=== PATIENT | male | born 1995 | race Asian ===

== ENCOUNTER 2025-03-14 09:33 | Outpatient (AMB) | payer OTHER, SELFPAY ==
--- NOTE | 2025-03-14 09:46 | A.OFFPC_ITS ---
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 He needs a refill of this medication Patient has been burping excessively over the past few months. Intermittent h eartburn. Some constipation, takes fiber. Hemorrhoids for years, sometimes brbpr. History of anemia. Tdap 08/2021 ROS see HPI PHYSICAL EXAM: GENERAL: Alert and oriented x 3. NAD EYES: EOMI. Anicteric. HENT: Moist mucous membranes. No scleral icterus. No cervical lymphadenopathy. LUNGS: Clear to auscultation bilaterally. CARDIOVASCULAR: Regular rate and rhythm. No murmur. No JVD. ABDOMEN: Soft, non-tender +bs EXTREMITIES: No edema. Non-tender. SKIN: No rashes or lesions. Warm. NEUROLOGIC: No focal neurological deficits. CN II-XII grossly intact PSYCHIATRIC: Cooperative. 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 1. Little interest or pleasure in doing things: not at all 2. Feeling down, depressed, or hopeless: several days 3. Trouble falling or staying asleep, or sleeping too much: several days 4. Feeling tired or having little energy: not at all 5. Poor appetite or overeating: not at all 6. Feeling bad about yourself - or that you are a failure or have let yourself or your family down: not at all 7. Trouble concentrating on things, such as reading the newspaper or watching television: several days 8. Moving or speaking so slowly that other people could have noticed. Or the opposite - being so fidgety or restless that you have been moving around a lot more than usual: not at all 9. Thoughts that you would be better off or of hurting yourself in some way: not at all Total score: 3 Depression Screening Interpretation: Negative Depression Screening Done: Yes 44231 - PHQ-9 Billing: Yes Source: Developed by Drs. Lefty Fernández, Juliet Andre, Panfilo Greer and colleagues, with an educational charlette from [employer]. Thrive Questionnaire Date Thrive assessed: 03/08/25 I am a: Patient What is your living situation today?: I have a steady place to live Within the past 12 months, did the food you bought not last and you didn't have the money to get more?: Never true Within the past 12 months, did you worry whether your food would run out before you got money to buy more?: Never true Do you have trouble paying for medicines?: No Do you have trouble getting transportation to medical appointments?: No Do you have trouble paying your heating and electricity bill?: No Do you have trouble taking care of your child, family member or friend?: No Do you have trouble with day-to-day activities such as bathing, preparing meals, shopping, managing finances, etc.?: No Are you currently unemployed and looking for a job?: No Are you interested in more education?: No Please select the resources that you would like help with: None Currently or been in a relationship where the following occur: No concerns reported THRIVE Score: 0 AUDIT C Alcohol Use Questionnaire (AUDIT-C) 1. How often do you have a drink containing alcohol?: Monthly or less 2. How many drinks containing alcohol do you have on a typical day when you are drinking?: 1 or 2 3. How often do you have six or more drinks on one occasion?: Never Total Score: 1 JILLIAN-7 AMB Questionnaire JILLIAN-7 Date JILLIAN - 7 assessed: 03/14/25 Feeling nervous, anxious, or on edge: 1 = Several days Not being able to stop or control worryin = Several days Worrying too much about different things: 1 = Several days Trouble relaxin = Several days Being so restless that it is hard to sit still: 0 = Not at all Becoming easily annoyed or irritable: 2 = More than half the days Feeling afraid as if something awful might happen: 1 = Several days Total JILLIAN-7 score (0-4 normal; 5-9 mild; 10-14 moderate; 15-21 severe): 7 Source: Developed by Drs. Lefty Fernández, Juliet Andre, Panfilo Greer and colleagues, with an educational charlette from [employer]. JILLIAN-7 Assessment Billing JILLIAN-7 Assessment Tool: JILLIAN-7 Assessment 81698 Physical exam (Primary Care) Vital Signs: Last Vital Signs Temp 98.4 F 03/14/25 09:51 Pulse 73 03/14/25 09:51 Resp 12 03/14/25 09:51 BP 112/82 03/14/25 09:51 BMI result Body Mass Index 21.6 Depression Screening Interpretation: Negative Thrive Assessment: Date of Thrive Assessment Date Thrive assessed 03/08/25 03/08/25 13:05 Currently or been in a relationship where the following occur: No concerns reported Coding Level of Care Code New Pt Level 4 (82643) Complex EM visit Add On G2211 Diagnoses Dyspepsia R10.13 History of Helicobacter pylori infection Z86.19 History of anemia Z86.2 Social anxiety disorder F40.10 Additional Codes JILLIAN-7 Assessment Billing - JILLIAN-7 Assessment Tool: JILLIAN-7 Assessment 96428 ([id number]) PHQ-9 - 29391 - PHQ-9 Billing: Yes ([id number]) Assessment & Plan Assessment & Plan (1) Dyspepsia: Code(s): R10.13 - Epigastric pain Category: Medical (2) History of Helicobacter pylori infection: Code(s): Z86.19 - Personal history of other infectious and parasitic diseases Category: Medical (3) History of anemia: Code(s): Z86.2 - Personal history of diseases of the blood and blood-forming organs and certain disorders involving the immune mechanism Category: Medical (4) Social anxiety disorder: Code(s): F40.10 - Social phobia, unspecified Category: Medical Plan 29 year old male presenting to [facility] Past medical, surgical, social reviewed Dyspepsia burping-check h pylori Hemorrhoids-add stool softenor. Declines referral at present Orders: Orders Comprehensive Met. Panel Today Z13.0 - Encounter for screening for diseases of the blood and blood-forming organs and certain disorders involving the immune mechanism, Z13.220 - Encounter for screening for lipoid disorders, Z13.228 - Encounter for screening for other metabolic disorders IRON PROFILE Today R10.13 - Epigastric pain, R35.89 - Other polyuria, R53.83 - Other fatigue, Z86.19 - Personal history of other infectious and parasitic diseases TSH reflex Free T4 Today R10.13 - Epigastric pain, R35.89 - Other polyuria, R53.83 - Other fatigue, Z86.19 - Personal history of other infectious and parasitic diseases Hemoglobin A1c Today R10.13 - Epigastric pain, R35.89 - Other polyuria, R53.83 - Other fatigue, Z86.19 - Personal history of other infectious and parasitic diseases Pathologist Review - CBC Today Z86.2 - Personal history of diseases of the blood and blood-forming organs and certain disorders involving the immune mechanism Complete Blood Count Auto Diff Today Z13.0 - Encounter for screening for diseases of the blood and blood-forming organs and certain disorders involving the immune mechanism, Z13.220 - Encounter for screening for lipoid disorders, Z13.228 - Encounter for screening for other metabolic disorders Lipid Panel Today Z13.0 - Encounter for screening for diseases of the blood and blood-forming organs and certain disorders involving the immune mechanism, Z13.220 - Encounter for screening for lipoid disorders, Z13.228 - Encounter for screening for other metabolic disorders H pylori Ag Stool Today R10.13 - Epigastric pain, R35.89 - Other polyuria, R53.83 - Other fatigue, Z86.19 - Personal history of other infectious and parasitic diseases Medications: New omeprazole 40 mg PO DAILY 30 caps 0RF propranolol 10 mg PO DAILY PRN 30 tabs 0RF public speaking propranolol 10 mg PO DAILY PRN 30 tabs 3RF public speaking
[2025-03-14 09:51] VITALS: BP 112/82; PULSE 73; RESP 12; TEMP 36.9; BMI 21.6
--- OUTSIDE RECORDS SUMMARY | 2025-03-14 10:47 | XMS_ITS | Clinical Summary ---
Author Organization [address] [facility] Address [address] [place] [address] Phone Care Team Providers Care Hitch Technician Name Role Phone Unavailable Primary Care Provider Unavailabl e Social History Tobacco Use Types Packs/Day Years Used Date Smoking Tobacco: Never Assessed Sex and Gender Information Value Date Recorded Sex Assigned at Not on file Legal Sex Male 8:40 AM EST Gender Identity Not on file Sexual Orientation Not on file Plan of Treatment Health Maintenance Due Date Last Done Comments DTaP,Tdap,and Td Vaccines (1 - Tdap) 09/24/2015 Hepatitis B Vaccines (1 of 3 - 19+ 3-dose series) 09/24/2015 HIV Screening 04/07/2022 Hepatitis C Screening 04/07/2022 Social Influencers of Health Screening 04/07/2022 HPV Vaccines (1 - 3-dose SCD M series) 09/24/2023 Depression Screening 05/05/2024 COVID-19 Vaccine (1 - 2023-2 5 season) 2025 Influenza Vaccine (#1) 2025 Cholesterol Screening (Lipid Panel) 09/09/2029 09/09/2024 RSV Immunization Adult Patie nts (1 - 1-dose 75+ series) 09/24/2071 HIB Vaccines Aged Out No longer eligi ble based on patient's age to complete this topic Hepatitis A Vaccines Aged Out No long er eligible based on patient's age to complete this topic IPV Vaccines Aged Out No longer eligi ble based on patient's age to complete this topic MMR Vaccines Aged Out No longer eligi ble based on patient's age to complete this topic Meningococcal ACWY Vaccine Aged Out N o longer eligible based on patient's age to complete this topic Meningococcal B Vaccine Aged Out No l onger eligible based on patient's age to complete this topic Pneumococcal Vaccine: Pediat rics (0 to 5 Years) and At-Risk Patients (6 to 49 Years) Aged Out No longer eligi ble based on patient's age to complete this topic RSV Immunization Patients Un suzy 20 months Aged Out No longer eligible b ased on patient's age to complete this topic Varicella Vaccines Aged Out No longer eligible based on patient's age to complete this topic Procedures Procedure Name Priority Date/Time Associated Diagnosis Comments LIPID PANEL WITH REFLEX TO DIRECT LDL Routine 09/09/2024 12:00 AM EDT Generalized anxiety disorder Chronic fatigue, unspecified from Last 3 Months or Most Recently Relevant to Health Maintenance Results * (ABNORMAL) Lipid panel with reflex to direct LDL (09/09/2024 12:00 AM EDT) Cholesterol 177 0 - 200 mg/dL LAB CHEMISTRY METHOD 09/09/2024 8:01 PM EDT [facility] Triglycerides 173(H) 0 - 150 mg/dL LAB CHEMISTRY METHOD 09/09/2024 8:01 PM EDT [facility] HDL 61 >=40 mg/dL LAB CHEMISTRY METHOD 09/09/2024 8:01 PM EDT [facility] LDL Calculated 81 0 - 100 mg/dL LAB CHEMISTRY METHOD 09/09/2024 8:01 PM EDT [facility] VLDL Cholesterol Samuel 34.6 mg/dL LAB CHEMISTRY METHOD 09/09/2024 8:01 PM [facility] Non HDL Chol. (LDL+VLDL) 116 <145 mg/dL [facility] Chol/HDL Ratio 2.9 0.0 - 4.4 LAB CHEMISTRY METHOD 09/09/2024 8:01 PM [facility] Blood Venous blood specimen / Unknown 09/09/2024 09/09/2024 7:06 PM EDT us [facility] LAB BLOOD ORDERABLES Final Res ult [facility] [address] [place] [address], [place] [phone] from Last 3 Months or Most Recently Relevant to Health Maintenance Insurance [employer]
--- OUTSIDE RECORDS SUMMARY | 2025-03-14 10:47 | XMS_ITS | Encounter Summary ---
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 - Main Lab [address] [facility] [place] [id number] Jcarlos Reich PA [address] [facility] [address] [place], [place] [id number] Generalized anxiety disorder; Chronic fatigue, unspecified Social History Tobacco Use Types Packs/Day Years Used Date Smoking Tobacco: Never Assessed Sex and Gender Information Value Date Recorded Sex Assigned at Not on file Legal Sex Male 8:40 AM EST Gender Identity Not on file Sexual Orientation Not on file documented as of this encounter Plan of Treatment Not on file documented as of this encounter Procedures Procedure Name Priority Date/Time Associated Diagnosis Comments PROSTATE SPECIFIC ANTIGEN SCREEN Routine 09/09/2024 12:00 AM EDT Generalized anxiety disorder Chronic fatigue, unspecified URINALYSIS WITH REFLEX MICROSCOPIC AND CULTURE Routine 09/09/2024 12:00 AM EDT Generalized anxiety disorder Chronic fatigue, unspecified ALEXANDER URINE CULTURE TUBE Routine 09/09/2024 12:00 AM EDT Generalized anxiety disorder Chronic fatigue, unspecified SST - GOLD Routine 09/09/2024 12:00 AM EDT Generalized anxiety disorder Chronic fatigue, unspecified LIPID PANEL WITH REFLEX TO DIRECT LDL Routine 09/09/2024 12:00 AM EDT Generalized anxiety disorder Chronic fatigue, unspecified CBC WITH AUTO DIFFERENTIAL Routine 09/09/2024 12:00 AM EDT Generalized anxiety disorder Chronic fatigue, unspecified VITAMIN D 25 HYDROXY Routine 09/09/2024 12:00 AM EDT Generalized anxiety disorder Chronic fatigue, unspecified URINALYSIS WITH REFLEX MICROSCOPIC AND CULTURE Routine 09/09/2024 12:00 AM EDT Generalized anxiety disorder Chronic fatigue, unspecified CBC AND DIFFERENTIAL Routine 09/09/2024 12:00 AM EDT Generalized anxiety disorder Chronic fatigue, unspecified THYROID STIMULATING HORMONE Routine 09/09/2024 12:00 AM EDT Generalized anxiety disorder Chronic fatigue, unspecified THYROXINE FREE Routine 09/09/2024 12:00 AM EDT Generalized anxiety disorder Chronic fatigue, unspecified MAGNESIUM Routine 09/09/2024 12:00 AM EDT Generalized anxiety disorder Chronic fatigue, unspecified HEMOGLOBIN A1C Routine 09/09/2024 12:00 AM EDT Generalized anxiety disorder Chronic fatigue, unspecified VITAMIN B12 Routine 09/09/2024 12:00 AM EDT Generalized anxiety disorder Chronic fatigue, unspecified COMPREHENSIVE METABOLIC PANEL Routine 09/09/2024 12:00 AM EDT Generalized anxiety disorder Chronic fatigue, unspecified documented in this encounter Results * SST tube (09/09/2024 12:00 AM EDT) Extra Tube Hold for add-ons. 09/09/2024 9:01 PM EDT [facility] Comment:Auto resulted. Blood Venous blood specimen / Unknown 09/09/2024 09/09/2024 7:06 PM EDT us Jcarlos CAR LAB BLOOD ORDERABLES Final Res ult [facility] [address] [place] [address], [place] [phone] * Alexander urine culture tube (09/09/2024 12:00 AM EDT) [facility] Extra Tube Hold for add-ons. 09/09/2024 9:01 PM EDT [facility] Comment:Auto resulted. Urine Urine specimen obtained by clean catch procedure / Unknown 09/09/2024 09/09/2024 7:06 PM EDT Jcarlos CAR LAB URINE ORDERABLES Final Res ult [facility] [address] [place] [address], [place] [phone] * Urinalysis with reflex microscopic and culture (09/09/2024 12:00 AM EDT) [facility] Specific [place] Urine 1.014 1.003 - 1.030 LAB URINALYSIS - AUTOMATED METHOD 09/09/2024 8:37 PM [facility] pH, Urine 7.0 5.0 - 8.0 pH LAB URINALYSIS - AUTOMATED METHOD 09/09/2024 8:37 PM [facility] Leukocytes, Urine Negative Negative LAB URINALYSIS - AUTOMATED METHOD 09/09/2024 8:37 PM [facility] Nitrite, Urine Negative Negative LAB URINALYSIS - AUTOMATED METHOD 09/09/2024 8:37 PM [facility] Protein, Urine Negative <=Trace mg/dL LAB URINALYSIS - AUTOMATED METHOD 09/09/2024 8:37 PM [facility] Glucose, Urine Negative Negative mg/dL LAB URINALYSIS - AUTOMATED METHOD 09/09/2024 8:37 PM [facility] Ketones, Urine Negative Negative mg/dL LAB URINALYSIS - AUTOMATED METHOD 09/09/2024 8:37 PM [facility] Urobilinogen, Urine 0.2 0.2 - 1.0 mg/dL LAB URINALYSIS - AUTOMATED METHOD 09/09/2024 8:37 PM EDT [facility] Bilirubin, Urine Negative Negative LAB URINALYSIS - AUTOMATED METHOD 09/09/2024 8:37 PM EDT [facility] Blood, Urine Negative Negative LAB URINALYSIS - AUTOMATED METHOD 09/09/2024 8:37 PM EDT [facility] Urine Urine specimen obtained by clean catch procedure / Unknown 09/09/2024 09/09/2024 7:06 PM EDT us Jcarlos CAR LAB URINE ORDERABLES Final Res ult [facility] [address] [place] [address], * (ABNORMAL) CBC auto differential (09/09/2024 12:00 AM EDT) WBC 6.7 4.8 - 10.8 K/mcL LAB HEMETOLOGY METHOD 09/09/2024 8:08 PM [facility] RBC 6.50(H) 4.50 - 5.50 M/mcL LAB HEMETOLOGY METHOD 09/09/2024 8:08 PM [facility] Hemoglobin 13.4(L) 13.5 - 17.5 g/dL LAB HEMETOLOGY METHOD [facility] Hematocrit 42.8 42.0 - 54.0 % LAB HEMETOLOGY METHOD 09/09/2024 8:08 PM [facility] MCV 65.6(L) 79.0 - 98.0 FL LAB HEMETOLOGY METHOD 09/09/2024 8:08 PM [facility] MCH 20.6(L) 27.0 - 32.0 pcg LAB HEMETOLOGY METHOD 09/09/2024 8[facility] MCHC 31.3(L) 32.0 - 37.0 g/dL LAB HEMETOLOGY METHOD 09/09/2024 8:08 PM [facility] RDW 17.0(H) 11.0 - 15.0 % LAB HEMETOLOGY METHOD 09/09/2024 8:[facility] Platelets 230 130 - 400 K/mcL LAB HEMETOLOGY METHOD 09/09/2024 8:08 PM [facility] MPV 11.2(H) 7.0 - 11.0 FL LAB HEMETOLOGY METHOD 09/09/2024 8:08 PM [facility] NRBC 0.0 <1.0 % LAB HEMETOLOGY METHOD 09/09/2024 8:08 PM [facility] NRBC Absolute 0.00 <0.10 K/mcL LAB HEMETOLOGY METHOD 09/09/2024 8:08 PM [facility] Neutrophils Relative 56.2 % LAB HEMETOLOGY METHOD 09/09/2024 8:08 PM [facility] Lymphocytes Relative 32.5 % LAB HEMETOLOGY METHOD 09/09/2024 8:08 PM [facility] Monocytes Relative 5.1 % LAB HEMETOLOGY METHOD 09/09/2024 8:08 PM [facility] Eosinophils Relative 4.9 % LAB HEMETOLOGY METHOD 09/09/2024 8:08 PM [facility] Basophils Relative 1.2 % LAB HEMETOLOGY METHOD 09/09/2024 8:08 PM [facility] Immature Granulocytes Relative 0.1 % LAB HEMETOLOGY METHOD 09/09/2024 8:08 PM [facility] Neutrophils Absolute 3.75 1.50 - 7.00 K/mcL LAB HEMETOLOGY METHOD 09/09/2024 8:08 PM EDT [facility] Lymphocytes Absolute 2.17 1.00 - 5.00 K/mcL LAB HEMETOLOGY METHOD 09/09/2024 8:08 PM EDT [facility] Monocytes Absolute 0.34 0.20 - 1.00 K/mcL LAB HEMETOLOGY METHOD 09/09/2024 8:08 PM EDT [facility] Eosinophils Absolute 0.33 0.00 - 0.50 [facility] LAB HEMETOLOGY METHOD 09/09/2024 8:08 PM EDT [facility] Basophils Absolute 0.08 0.00 - 0.20 [facility] LAB HEMETOLOGY METHOD 09/09/2024 8:08 PM EDT [facility] Immature Granulocytes Absolute 0.01 0.00 - 0.03 [facility] LAB HEMETOLOGY METHOD 09/09/2024 8:08 PM EDT [facility] Blood Venous blood specimen / Unknown 09/09/2024 09/09/2024 7:06 PM EDT Jcarlos CAR LAB BLOOD ORDERABLES Final Res ult [facility] [address] [place] [address], * (ABNORMAL) Vitamin D 25 hydroxy (09/09/2024 12:00 AM EDT) Vit D, 25-Hydroxy 26.9(L) 30.0 - 80.0 ng/mL LAB CHEMISTRY METHOD 09/09/2024 8:23 PM EDT [facility] Blood Venous blood specimen / Unknown 09/09/2024 09/09/2024 7:06 PM EDT Jcarlos CAR LAB BLOOD ORDERABLES Final Res ult Performing Organization Address [facility]/ZIP Co de Phone Number [facility] [address] [place] [address], [place] [phone] * Thyroid stimulating hormone (09/09/2024 12:00 AM EDT) TSH 0.79 0.40 - 4.00 mcIU/mL LAB CHEMISTRY METHOD 09/09/2024 9:03 PM EDT [facility] Blood Venous blood specimen / Unknown 09/09/2024 09/09/2024 7:06 PM EDT Jcarlos CAR LAB BLOOD ORDERABLES Final Res ult Performing Organization Address [facility] de Phone Number [facility] [address] [place] [address], [place] [phone] * Prostate specific antigen screen (09/09/2024 12:00 AM EDT) [facility] PSA 0.90 0.00 - 4.00 ng/mL LAB CHEMISTRY METHOD 09/09/2024 8:23 PM EDT [facility] Blood Venous blood specimen / Unknown 09/09/2024 09/09/2024 7:06 PM EDT Narrative [facility] - 09/09/2024 8:23 PM EDT The Siemens Advia Centaur Chemiluminescent Immunoassay is used. Results obtained with different assay methods or kits cannot be used interchangeably. Results cannot be interpreted as absolute evidence of the presence or absence of malignant disease. Jcarlos CAR LAB BLOOD ORDERABLES Final Res ult Performing Organization Address [facility]/ZIP Co de Phone Number [facility] [address] [place] [address], [place] [phone] * Magnesium (09/09/2024 12:00 AM EDT) Magnesium 2.1 1.9 - 2.6 mg/dL LAB CHEMISTRY METHOD 09/09/2024 7:41 PM EDT [facility] Blood Venous blood specimen / Unknown 09/09/2024 09/09/2024 7:06 PM EDT us Jcarlos CAR LAB BLOOD ORDERABLES Final Res ult Performing Organization Address City/[facility]/ZIP Co de Phone Number [facility] [address] [place] [address], [place] [phone] * Hemoglobin A1c (09/09/2024 12:00 AM EDT) [facility] Hemoglobin A1C 5.5 <6.5 % LAB CHEMISTRY METHOD 09/09/2024 10:18 PM EDT [facility] Mean Bld Glu Estim. 111 mg/dL LAB CHEMISTRY METHOD 09/09/2024 10:18 PM EDT [facility] Blood Venous blood specimen / Unknown 09/09/2024 09/09/2024 7:06 PM EDT us Jcarlos CAR LAB BLOOD ORDERABLES Final Res ult Performing Organization Address [facility] de Phone Number [facility] [address] [place] [address], [place] [phone] * Thyroxine free (09/09/2024 12:00 AM EDT) [facility] Free T4 1.43 0.70 - 1.80 ng/dL LAB CHEMISTRY METHOD 09/09/2024 8:23 PM EDT [facility] Blood Venous blood specimen / Unknown 09/09/2024 09/09/2024 7:06 PM EDT us Jcarlos CAR LAB BLOOD ORDERABLES Final Res ult [facility] [address] [place] [address], [place] [phone] * (ABNORMAL) Vitamin B12 (09/09/2024 12:00 AM EDT) [facility] Vitamin B-12 941(H) 250 - 900 pcg/mL LAB CHEMISTRY METHOD 09/09/2024 8:01 PM EDT [facility] Blood Venous blood specimen / Unknown 09/09/2024 09/09/2024 7:06 PM EDT Jcarlos CAR LAB BLOOD ORDERABLES Final Res ult [facility] [address] [place] [address], [place] [phone] * (ABNORMAL) Lipid panel with reflex to direct LDL (09/09/2024 12:00 AM EDT) [facility] Cholesterol 177 0 - 200 mg/dL LAB CHEMISTRY METHOD [facility]/09[facility]2024 [facility] Triglycerides 173(H) 0 - 150 mg/dL LAB CHEMISTRY METHOD 09/09/2024 8:01 PM [facility] HDL 61 >=40 mg/dL LAB CHEMISTRY METHOD 09/09/2024 8:[facility] LDL Calculated 81 0 - 100 mg/dL LAB CHEMISTRY METHOD 09/09/2024 8:01 PM [facility] VLDL Cholesterol Samuel 34.6 mg/dL LAB CHEMISTRY METHOD 09/09/2024 8:01 [facility] Non HDL Chol. (LDL+VLDL) 116 <145 mg/dL LAB CHEMISTRY METHOD 09/09/2024 8:01 PM [facility] Chol/HDL Ratio 2.9 0.0 - 4.4 LAB CHEMISTRY METHOD 09/09/2024 8:01 PM [facility] Blood Venous blood specimen / Unknown 09/09/2024 09/09/2024 7:06 PM EDT us Jacrlos CAR LAB BLOOD ORDERABLES Final Res ult [facility] [address] [place] [address], * (ABNORMAL) Comprehensive metabolic panel (09/09/2024 12:00 AM EDT) Sodium 141 133 - 145 mmol/L LAB CHEMISTRY METHOD 09/09/2024 8:01 PM [facility] Potassium 4.4 3.5 - 5.5 mmol/L LAB CHEMISTRY METHOD 09/09/2024 8:01 PM [facility] Chloride 108 96 - 110 mmol/L LAB CHEMISTRY METHOD 09/09/2024 8:01 PM [facility] CO2 30 21 - 32 mmol/L LAB CHEMISTRY METHOD 09/09/2024 8:01 PM [facility] Anion Gap 3 3 - 11 LAB CHEMISTRY METHOD 09/09/2024 8:01 PM [facility] Glucose 117(H) 70 - 100 mg/dL LAB CHEMISTRY METHOD 09/09/2024 8:01 PM [facility] BUN 18 5 - 25 mg/dL LAB CHEMISTRY METHOD 09/09/2024 8:01 PM [facility] Creatinine 1.16 0.70 - 1.30 mg/dL LAB CHEMISTRY METHOD 09/09/2024 8:01 PM [facility] eGFR 89 >=60 mL/min/1. 73m2 LAB CHEMISTRY METHOD 09/09/2024 8:01 PM [facility] Comment:Calculation based on the Chronic Kidney Disease Epidemiology Collaboration (CKD-EPI) equation refit without adjustment for race. BUN/Creatinine Ratio 15.5 LAB CHEMISTRY METHOD 09/09/2024 8:01 PM [facility] Calcium 9.4 8.5 - 10.5 mg/dL LAB CHEMISTRY METHOD 09/09/2024 8:01 PM [facility] AST (SGOT) 57(H) 10 - 42 unit/L LAB CHEMISTRY METHOD 09/09/2024 8:01 PM [facility] ALT (SGPT) 51 10 - 60 unit/L LAB CHEMISTRY METHOD 09/09/2024 8:01 PM [facility] Alkaline Phosphatase 79 42 - 121 unit/L LAB CHEMISTRY METHOD 09/09/2024 8:01 PM [facility] Total Protein 7.3 6.0 - 8.0 g/dL LAB CHEMISTRY METHOD 09/09/2024 8:01 PM [facility] Albumin 4.3 3.2 - 5.0 g/dL LAB CHEMISTRY METHOD 09/09/2024 8:01 PM [facility] Total Bilirubin 0.6 0.0 - 1.4 mg/dL LAB CHEMISTRY METHOD 09/09/2024 8:01 PM [facility] Blood Venous blood specimen / Unknown 09/09/2024 09/09/2024 7:06 PM EDT Jcar[facility] CAR LAB BLOOD ORDERABLES Final Res ult [facility] [address] [place] [address], documented in this encounter Visit Diagnoses Diagnosis Generalized anxiety disorder Chronic fatigue, unspecified documented in this encounter
== END 2025-03-14 10:12 | disposition home or self-care (01) ==
LOC: HO.HMCFM 09:34
PROVIDERS: PCP Internal Medicine; Visit Provider Internal Medicine
DX: R10.13 Epigastric pain (principal); Z86.19 Personal history of other infectious and parasitic diseases; Z86.2 Personal history of diseases of the blood and blood-forming organs and certain disorders involving the immune mechanism; F40.10 Social phobia, unspecified

== ENCOUNTER 2025-03-14 09:33 | Outpatient (REF) | payer OTHER, SELFPAY ==
[2025-03-14 14:17] LABS: MANUAL DIFF FLAG NO
[2025-03-14 14:31] LABS: Hematocrit 42.9 % (42.0-52.0); Hemoglobin 13.6 g/dl (14.0-18.0); Imm Gran Abs Auto 0.03 X10*3/uL (0.00-0.03); Imm Gran Pct Auto 0.4 % (0.0-0.4); Lymphocytes Absolute Auto 2.1 X10*3/uL (1.2-4.9); Mean Corpuscular HGB Conc 31.7 g/dl (31.0-36.0); Mean Corpuscular Hemoglobin 20.5 pg (27.0-33.0); NRBC Abs Auto 0.000 X10*3/uL (0.0-0.012); NRBC Pct Auto 0.0 /100WBC (0.0-0.2); Platelet Count 236 X10*3/uL (160-400); Red Blood Count 6.65 X10*6/uL (4.60-5.80); White Blood Count 7.5 X10*3/uL (4.8-10.8)
[2025-03-14 14:40] LABS: Mean Corpuscular Volume 64.5 fL (80.0-98.0)
[2025-03-14 16:41] LABS: Alanine Aminotransferase 25 U/L (0-40); Albumin Level 4.9 g/dL (3.5-5.0); Alkaline Phosphatase 79 U/L (39-117); Anion Gap 14 (12-20); Aspartate Amino Transferase 22 U/L (5-37); Blood Urea Nitrogen 20 mg/dL (9-16); Calcium 9.8 mg/dL (8.4-10.2); Carbon Dioxide 27 mmol/L (22-29); Chloride 106 mmol/L (96-108); Cholesterol 187 mg/dL (<200); Estimated Glomerular Filt Rate > 60; HDL Cholesterol 64 mg/dL (>40); Iron 132 mcg/dL (45-160); Percent Iron Saturation 51 % (15-50); Potassium 3.5 mmol/L (3.3-5.1); Sodium 143 mmol/L (135-145); Total Iron Binding Capacity 258 mcg/dL (228-428); Total Protein 7.4 g/dL (6.5-8.0); Triglycerides 48 mg/dL (<150); Unsaturated Iron Binding 126 ug/dL
== END 2025-03-14 09:34 | disposition home or self-care (01) ==
LOC: HO.WFDLDS 09:33
PROVIDERS: PCP Internal Medicine; Visit Provider Internal Medicine
DX: R10.13 Epigastric pain (principal); R53.83 Other fatigue; R35.89 Other polyuria; F40.10 Social phobia, unspecified; Z86.2 Personal history of diseases of the blood and blood-forming organs and certain disorders involving the immune mechanism; Z13.228 Encounter for screening for other metabolic disorders; Z13.220 Encounter for screening for lipoid disorders; Z13.0 Encounter for screening for diseases of the blood and blood-forming organs and certain disorders involving the immune mechanism; Z86.19 Personal history of other infectious and parasitic diseases
CPT/HCPCS: 80053; 80061; 83036; 83540; 84443; 85025; 96127

== ENCOUNTER 2025-03-25 18:47 | Outpatient (REF) | payer OTHER, SELFPAY | END 2025-03-25 18:48 | disposition home or self-care (01) | LOC: HO.LNP 18:47 | PROVIDERS: Visit Provider Internal Medicine | DX: R10.13 Epigastric pain (principal); R53.83 Other fatigue; R35.89 Other polyuria; Z86.19 Personal history of other infectious and parasitic diseases | CPT/HCPCS: 87338 ==